=== PATIENT | female | born 1990 | race Caucasian/White ===

== ENCOUNTER 2020-12-10 15:16 | Emergency (ER) | payer MEDICAID, SELFPAY ==
[2020-12-10 15:20] VITALS: BP 145/98; PULSE 87; RESP 21; TEMP 36.9; O2SAT 99; BMI 28.5
--- NOTE | 2020-12-10 15:57 | HMH.EDUTC ---
[facility] [place] Disposition Clinical Impression: Abscess Disposition: Home, Self-Care Condition on Discharge: Good Instructions: DI for Skin Abscess, Trimethoprim/Sulfamethoxazole (Alternative Therapy), Mupirocin Additional Instructions: *Start antibiotic(s) immediately and be sure to take as ordered for the FULL length of time although you may be feeling better or start to see improvement in the next 24-48 hours *Monitor closely. Outlined redness so that you can monitor easier. Follow up immediately for new or worsening symptoms including but not limited to redness, swelling, streaking from site fever or chills. *Warm compress 15 minutes 3-4 times day *Never squeeze or pop these on your own. Seek immediate medical attention next time this occurs *Monitor Temp. Tylenol every 4 hours as needed and ibuprofen every 6 hours as needed (as long as your primary care doctor has told you that it is ok to take both. For fever, aches, pain. ER if no less that 101 despite Tylenol and ibuprofen Follow up with your family doctor/primary care physician in the next 48-72 hours if no improvement Return if needed Straight to ER if any life threatening symptoms Warm compresses with epson salt may help Prescriptions: Sulfamethoxazole/Trimethoprim [Bactrim DS tablet] 1 each PO BID 10 Days #20 tab Transmission Status: Pending to [id number] Mupirocin Calcium [Mupirocin 2% Cream 15gm] 1 applicatio TP TID 10 Days #1 tube Transmission Status: Pending to [id number] Referrals: Provider,Referral, MD [Primary Care Provider] - As needed Time of Disposition: 16:03 Medical Decision Making - Manish Inquiry Pt receiving controlled substance: No Manish was queried for this patient: No Vital Signs: 12/10/20 15:20 Temperature 98.4 F Temperature Source Oral Pulse Rate [Right Brachial] 87 Respiratory Rate 21 Blood Pressure [Right Arm] 145/98 H Blood Pressure Mean [Right Arm] 113 Blood Pressure Source [Right Arm] Automatic Cuff 02 Sat by Pulse Oximetry 99 Oxygen Delivery Method Room Air [facility] [place] HPI - General Stated complaint: Right knee spot Time Seen by Provider: 12/10/20 15:57 Mode of Arrival: Ambulatory Source of Information: Patient Limitations: No Limitations Description of Symptoms (Recalled from Triage Doc. by RN): PATIENT C/O SPOT ON RIGHT KNEE SINCE THURSDAY HEENT Symptoms (Recalled from RN notes): No Resp Symptoms (Recalled from RN notes): No Skin Symptoms (Recalled from RN notes): Yes MS Symptoms (Recalled from RN notes): No Functional Status (Recalled from RN notes): WNL - History of Present Illness Provider Complaint: Patient states that she noticed red hard area on her right lower leg below her knee on Thursday States that she has been watching it and marking it for monitoring States that area is red, hard and warm States that she was concerned that it may have been MRSA states that her father has had it before States that today it wasnt any better so she came in - Related Data Previous Rx's Medication Instructions Recorded Mupirocin Calcium [Mupirocin 2% 1 applicatio TP TID 10 Days #1 tube 12/10/20 Cream 15gm] Sulfamethoxazole/Trimethoprim 1 each PO BID 10 Days #20 tab 12/10/20 [Bactrim DS tablet] Allergies Allergy/AdvReac Type Severity Reaction Status Date / Time cefaclor [From Ceclor] Allergy Verified 04/24/19 01:26 amoxicillin AdvReac Verified 04/24/19 01:26 - Worker's Comp Is this a Worker's Comp case?: No [facility] History - Hepatitis A Screen Drug use history?: No High risk sexual behaviors?: No History of sexually transmitted infection?: No Currently employed?: No Childcare worker?: No Do you have indoor plumbing?: Yes Do you have electricity?: Yes Attestation statement:: This patient has been screened for Hepatitis A risk factors. I have reviewed the patient's past medical history: Yes Medical History: Denies:: Diabetes Mellitus Type 1, Diabetes Mellitus Type 2, Seizures Other Medical
[2020-12-10 16:02] VITALS: BP 145/98; PULSE 87; RESP 21; TEMP 36.9; O2SAT 99
== END 2020-12-10 16:11 | disposition home or self-care (01) ==
PROVIDERS: Emergency Provider Nurse Practitioner
DX: L02.415 Cutaneous abscess of right lower limb (principal); F17.210 Nicotine dependence, cigarettes, uncomplicated; Z88.1 Allergy status to other antibiotic agents
CPT/HCPCS: 99202; G0463

== ENCOUNTER 2020-12-13 14:31 | Emergency (ER) | payer MEDICAID, SELFPAY ==
[2020-12-13 14:34] VITALS: BP 136/90; PULSE 110; RESP 18; TEMP 37.1; O2SAT 98; BMI 32.2
--- NOTE | 2020-12-13 15:26 | HMH.EDGENADL ---
ED Disposition Clinical Impression: Abscess Cellulitis Qualifiers: Site of cellulitis: extremity Site of cellulitis of extremity: lower extremity Laterality: left Qualified Code(s): L03.116 - Cellulitis of left lower limb Disposition: Home, Self-Care Condition on Discharge: Good Instructions: DI for Skin Abscess Additional Instructions: The biotics as directed. PCP in 1 to 2 days. Return emergency department fever, enlarging area of redness/warmth or worsening pain. Referrals: Provider,Referral, MD [Primary Care Provider] - 3 days Time of Disposition: 16:26 - Critical Care Critical Care Time: No Attestation: On 12/13/20, the high probability of a clinically significant, sudden or life threatening deterioration of the following system(s) required my full and direct attention, intervention and personal management. The time I documented below is in addition to time spent performing reported procedures but includes the following listed in this critical care notation. Medical Decision Making - Medical Records Medical records reviewed: Yes: I reviewed the patient's medical records. - Manish Inquiry Pt receiving controlled substance: No Vital Signs: 12/13/20 14:34 Temperature 98.8 F Temperature Source Oral Pulse Rate [Left Radial] 110 H Respiratory Rate 18 Blood Pressure [Left Arm] 136/90 Blood Pressure Mean [Left Arm] 105 Blood Pressure Source [Left Arm] Automatic Cuff Blood Pressure Position [Left Arm] Sitting 02 Sat by Pulse Oximetry 98 Oxygen Delivery Method Room Air Orders (Tests/Meds): ED MEDICATIONS Discontinued Medications Generic Name Dose Route Start Last Admin Trade Name Freq PRN Reason Stop Dose Admin Lidocaine/Prilocaine 5 gm 12/13/20 15:25 12/13/20 15:31 Lidocaine/Prilocaine 5gm Tube TP 12/13/20 15:26 1 gram ONCE ONE Administration Medical Decision Narrative: 29yo F evaluated for worsening abscess. Lesion is ready for drainage at this time. EMLA cream applied. See procedure note for further details. Patient discharged home in stable condition and encouraged to continue taking Bactrim as directed. No packing necessary. General Adult HPI - General Chief complaint: Skin/Abscess/Foreign Body Stated complaint: abcess Rt knee Time Seen by Provider: 12/13/20 15:26 Mode of Arrival: Ambulatory Limitations: No Limitations Description of Symptoms (Recalled from ER Triage Doc. by RN): pt reports abscess on RLE, pt reports was seen in [facility] and started on antibiotics on 8/2/21. Pt reports worsening pain and swelling of area. - History of Present Illness HPI narrative: 29yo F presents the emergency department secondary to worsening abscess on lateral aspect of right leg. Was seen here few days ago and is been taking Bactrim as directed. States the wound is now more painful and has a large pustule on top. No fever. - Related Data Previous Rx's Medication Instructions Recorded Mupirocin Calcium [Mupirocin 2% 1 applicatio TP TID 10 Days #1 tube 12/10/20 Cream 15gm] Sulfamethoxazole/Trimethoprim 1 each PO BID 10 Days #20 tab 12/10/20 [Bactrim DS tablet] Allergies Allergy/AdvReac Type Severity Reaction Status Date / Time cefaclor [From [facility]] Allergy Verified 04/24/19 01:26 amoxicillin AdvReac Verified 04/24/19 01:26 [facility] History - Hepatitis A Screen Drug use history?: No High risk sexual behaviors?: No History of sexually transmitted infection?: No Currently employed?: No Childcare worker?: No Do you have indoor plumbing?: Yes Do you have electricity?: Yes Attestation statement:: This patient has been screened for Hepatitis A risk factors. I have reviewed the patient's past medical history: Yes Medical History: Denies:: Diabetes Mellitus Type 1, Diabetes Mellitus Type 2, Seizures Other Medical History: Denies: Blood Transfusion Reaction Laterality Cases: Bilateral: Tonsillectomy Other Surgeries: Yes: Appendectomy - Social History
[2020-12-13 16:33] VITALS: BP 128/85; PULSE 100; RESP 16; TEMP 37.1; O2SAT 98
== END 2020-12-13 16:33 | disposition home or self-care (01) ==
PROVIDERS: Emergency Provider Family Medicine
DX: L03.116 Cellulitis of left lower limb (principal); F17.210 Nicotine dependence, cigarettes, uncomplicated
CPT/HCPCS: 10060; 99282

== ENCOUNTER 2021-11-13 22:52 | Emergency (ER) | payer MEDICAID, SELFPAY ==
[2021-11-13 22:58] VITALS: BP 140/80; PULSE 131; RESP 16; TEMP 36.9; O2SAT 98
[2021-11-13 23:05] VITALS: BMI 35.2
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
[2021-11-13 23:25] LABS: Urine Pregnancy, HCG Qual. Negative (Negative)
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
[2021-11-14 00:40] VITALS: BP 134/78; PULSE 100; RESP 16; TEMP 36.9; O2SAT 99
== END 2021-11-14 00:56 | disposition home or self-care (01) ==
PROVIDERS: Emergency Provider Emergency Medicine; PCP Nurse Practitioner Family
DX: S06.0X0A Concussion without loss of consciousness, initial encounter (principal); S70.02XA Contusion of left hip, initial encounter; S49.92XA Unspecified injury of left shoulder and upper arm, initial encounter; V48.0XXA Car driver injured in noncollision transport accident in nontraffic accident, initial encounter
CPT/HCPCS: 70450; 71046; 72125; 73030; 73502; 81025; 99284

== ENCOUNTER → 2022-08-23 19:04 | Outpatient (CLI) | payer MEDICAID, SELFPAY ==
[2022-08-23 19:19] LABS: Influenza A, PCR Not Detected (NotDetected); Influenza B, PCR Not Detected (NotDetected)
[2022-08-23 20:15] LABS: Coronavirus 19, PCR Detected (NotDetected)
== END ==
PROVIDERS: PCP Internal Medicine; Visit Provider Nurse Practitioner Family
DX: U07.1 COVID-19 (principal)
CPT/HCPCS: C9803; U0003; U0005